=== PATIENT | female | born 1980 | race African-American/Black ===

== ENCOUNTER 2019-11-28 09:15 | Emergency (ER) | payer OTHER ==
[2019-11-29 13:54] LABS: SARS-CoV-2 MS2 Positive; SARS-CoV-2 N Gene Positive; SARS-CoV-2 S Gene Positive; SARS-CoV-2 by NAA DETECTED (NotDetected); SARS-CoV-2 orf1ab Positive
== END 2019-11-28 09:48 | disposition home or self-care (01) ==
LOC: NAV ERS 09:15
DX: U07.1 COVID-19 (principal); I10 Essential (primary) hypertension
CPT/HCPCS: 87635; 99283; U0003

== ENCOUNTER 2020-04-11 19:33 | Emergency (ER) | payer OTHER ==
[2020-04-11] MEDS ORDERED: Ketorolac Tromethamine 60 MG/2 ML VIAL ONE (19:58)
--- NOTE | 2020-04-11 20:27 | RAD ---
Left ankle 3 views HISTORY: Injury. FINDINGS: Ankle mortise and talar dome are intact. No acute fracture or dislocation. Os cuboideum noted. Plantar enthesophyte arises from the inferior aspect of the calcaneus. IMPRESSION : No acute osseous abnormalities are demonstrated. Plantar heel spur.
== END 2020-04-11 20:32 | disposition home or self-care (01) ==
LOC: NAV ERS 19:33
DX: S90.02XA Contusion of left ankle, initial encounter (principal); R00.0 Tachycardia, unspecified; I10 Essential (primary) hypertension; W20.8XXA Other cause of strike by thrown, projected or falling object, initial encounter
CPT/HCPCS: 96372; J1885

== ENCOUNTER 2021-05-07 13:56 | Emergency (ER) | payer BC, OTHER ==
[2021-05-08 08:35] LABS: SARS-CoV-2 PCR by NAA DETECTED (NotDetected)
== END 2021-05-07 14:43 | disposition home or self-care (01) ==
LOC: NAV ERS 13:56
DX: U07.1 COVID-19 (principal); I10 Essential (primary) hypertension
CPT/HCPCS: 99284; U0003; U0005